=== PATIENT | female | born 1960 | race Caucasian/White ===

== ENCOUNTER 2016-11-19 15:10 | Inpatient (IN) | payer SELFPAY ==
[2016-11-19] MEDS ORDERED: DUONEB 0.5-3 MG/3 ml Neb IH ONE ×2 (15:56→16:23)
--- NOTE | 2016-11-19 16:04 | ERPHSYRPT ---
- History of Present Illness Time Seen by Provider: 11/19/16 15:51 Source: patient Exam Limitations: no limitations Patient Subjective Stated Complaint: prod cough and not feeling well for two days Triage Nursing Assessment: ambulated to room per self. skin w/d, color pale resp slightly labored. breath sounds diminished throughout. sats 86% room air. placed on oxygen 3L Physician History: This is a 56-year-old white female with history of high blood pressure, COPD, diabetes, arthritis, She arrives with complaint of a cough productive of yellow sputum shortness of breath, pain in her right side of her chest with breathing symptoms for 3 days. She denies any fevers no nausea no vomiting no diarrhea she has no abdominal pain. Past medical history includes high blood pressure, COPD, diabetes, arthritis, pancreatitis, anxiety, bipolar disorder. Past surgical history includes cholecystectomy, hysterectomy. Social history is positive for tobacco use patient denies alcohol or illicit drug use. Timing/Duration: day(s) (3 days) Activities at Onset: none Severity of Dyspnea-Max: moderate Severity of Dyspnea-Current: mild Possible Cause: occasional episodes Modifying Factors: Improves With: albuterol inhaler (patient has a Pro Air inhaler at home) Associated Symptoms: constant, cough, chest pain/discomfort (pain right chest with coughing), wheezing, painful breathing, productive cough, No edema, No fever, No insomnia, No loss of appetite, No lightheadedness, No weakness, No ankle swelling, No chills, No hemoptysis, No calf pain, No dizziness, No heaviness, No heart racing, No lightheadedness, No leg swelling, No muscle spasms feet, No muscle spasms hands, No sweating, No tightness, No tingling face , No tingling hands Allergies/Adverse Reactions: No Known Drug Allergies Allergy (Verified 11/19/16 15:27) Home Medications: Albuterol Sulfate [Proair Hfa] 8.5 gm IH Q4H 03/27/14 [History] Clonazepam 1 mg PO BID 03/27/14 [History] Lisinopril 10 mg [Zestril 10 MG] 10 mg PO HS 03/27/14 [History] Tramadol HCl 50 mg [Ultram 50 mg] 50 mg PO BID 03/27/14 [History] Carvedilol 25 mg PO BID 04/10/14 [History] Aspirin 81 mg PO HS 07/30/15 [History] Diclofenac Sodium 50 mg [Voltaren 50 mg] 50 mg PO BID 11/19/16 [History] Insulin Glargine,Hum.rec.anlog [Lantus] 50 unit SQ HS 11/19/16 [History] Hx Tetanus, Diphtheria Vaccination/Date Given: Yes Hx Influenza Vaccination/Date Given: No Hx Pneumococcal Vaccination/Date Given: No - Review of Systems Constitutional: No Fever, No Chills Eyes: No Symptoms Ears, Nose, & Throat: No Symptoms, No Ear Pain, No Ear Discharge, No Hearing Changes, No Tinnitus, No Nose Pain, No Nose Congestion, No Nose Discharge, No Sinus Drainage, No Epistaxis, No Mouth Pain, No Mouth Swelling, No Loose Teeth, No Throat Pain, No Throat Swelling, No Hoarse, No Painful Swallowing, No Snoring , No Stridor Respiratory: Cough, Dyspnea, Wheezing, No Cyanosis, No Dyspnea on Exertion (BOSWELL) , No Stridor, No Other Cardiac: Chest Pain (pain in right chest with coughing), No Edema, No Palpitations, No Syncope, No Orthopnea Abdominal/Gastrointestinal: No Abdominal Pain, No Nausea, No Vomiting, No Diarrhea Genitourinary Symptoms: No Dysuria Musculoskeletal: No Back Pain, No Neck Pain Skin: No Rash Neurological: No Dizziness, No Focal Weakness, No Sensory Changes Psychological: No Symptoms Endocrine: No Symptoms All Other Systems: Reviewed and Negative - Past Medical History Pertinent Past Medical History: Yes Neurological History: No Pertinent History ENT History: Cataracts Cardiac History: Hypertension Respiratory History: COPD Endocrine Medical History: Diabetes Type II Musculoskeletal History: Osteoporosis GI Medical History: Other History: No Pertinent History Psycho-Social History: Anxiety, Bipolar Female Reproductive Disorders: No Pertinent History Other Medical History: spastic colon - Past Surgical History Past Surgical History: Yes Neuro Surgical History: No Pertinent History Cardiac: No Pertinent History Respiratory: No Pertinent History Gastrointestinal: Cholecystectomy Genitourinary: No Pertinent History Musculoskeletal: No Pertinent History Female Surgical History: Hysterectomy Other Surgical History: gallbladder removed - Social History Smoking Status: Current every day smoker How long have you smoked: 30 Exposure to second hand smoke: Yes Drug Use: none Patient Lives Alone: No - Nursing Vital Signs Nursing Vital Signs: Initial Vital Signs Temperature 99.1 F Temperature Source Oral Pulse Rate 94 Respiratory Rate 18 Blood Pressure [] 119/60 Pain Intensity 2 - Physical Exam General Appearance: mild distress, alert Eye Exam: PERRL/EOMI, eyes nml inspection, other (fundi are unremarkable) Ears, Nose, Throat Exam: hearing grossly normal, normal ENT inspection, normal pharynx, No abnormal TM (R), No abnormal TM (L), No sinus pain/drainage, No hearing decreased, No nasal congestion, No pharyngeal erythema, No tonsillar exudate, No tonsillar swelling Neck Exam: normal inspection, non-tender, supple Respiratory Exam: diminished breath sounds, rhonchi (bilateral rhonchi), wheezing, other (pain in right chest with deep breathing) Cardiovascular/Chest Exam: normal heart sounds, regular rate/rhythm Abdominal/Gastrointestinal Exam: soft, No tenderness, No distention, No mass Extremity Exam: non-tender, normal range of motion, normal inspection, no calf tenderness, no pedal edema Peripheral Pulses Exam: dorsalis-pedis (R): 2+, dorsalis-pedis (L): 2+ Neurologic Exam: alert, oriented x 3, cooperative, shaft repairer II-XII nml as tested, sensation nml, No motor deficits Skin Exam: normal color, warm, No dry SpO2 Interpretation: normal (87%) SpO2: 87 Oxygen Delivery: Room Air - Course Nursing assessment & vital signs reviewed: Yes EKG Interpreted by Me: RATE (90bpm), Sinus Rhythm, NORMAL AXIS, Other (EKG, sinus rhythm, 90 bpm, normal axis, no acute ST or T wave changes noted) - Radiology Exams Chest X-ray Interpretation: Interpreted by me (no acute disease process noted) Ordered Tests: Active Orders 24 hr Category Date Time Status EKG-ER Only STAT Care 11/19/16 15:56 Active IV Insertion STAT Care 11/19/16 15:56 Active Oxygen-ED Only NASAL CANNULA 2 lpm Care 11/19/16 15:56 Active CHEST 1 VIEW (PORTABLE) Stat Exams 11/19/16 15:57 Taken BLOOD CULTURE Stat Lab 11/19/16 17:32 Ordered CBC W DIFF Stat Lab 11/19/16 16:15 Completed CMP Stat Lab 11/19/16 16:15 Completed CULTURE,SPUTUM Stat Lab 11/19/16 17:32 Uncollected D-DIMER QUANTITATION Stat Lab 11/19/16 16:15 Completed TROPONIN Stat Lab 11/19/16 16:15 Completed VENOUS BLOOD GAS Urgent Lab 11/19/16 15:56 Completed Respiratory Nebulizer STAT RT 11/19/16 15:59 Completed Medication Summary Generic Name Dose Route Start Last Admin Trade Name Lizz PRN Reason Stop Dose Admin Ceftriaxone Sodium/Dextrose 50 mls @ 100 mls/hr 11/19/16 17:32 Rocephin 1 Gm-D5w 50 Ml Bag IV 11/19/16 18:01 STAT ONE Discontinued Medications Generic Name Dose Route Start Last Admin Trade Name Lizz PRN Reason Stop Dose Admin Albuterol/Ipratropium 3 ml 11/19/16 15:56 11/19/16 16:00 Duoneb 0.5-3 Mg/3 Ml Neb IH 11/19/16 15:57 3 ml STAT ONE Administration Albuterol/Ipratropium Confirm 11/19/16 16:23 Duoneb 0.5-3 Mg/3 Ml Neb Administered 11/19/16 16:24 Dose 3 ml IH .STK-MED ONE Methylprednisolone Sodium Succinate 125 mg 11/19/16 17:22 Solu-Medrol 125 Mg IV 11/19/16 17:23 STAT ONE Lab/Rad Data: Laboratory Result Diagrams 11/19/16 16:15 11/19/16 16:15 Laboratory Results 11/19/16 11/19/16 11/19/16 Range/Units 16:15 16:15 16:15 WBC 15.5 H (4.0-10.5) K/mm3 RBC 5.09 (4.1-5.4) M/mm3 Hgb 13.8 (12.0-16.0) gm/dl Hct 42.3 (35-47) % MCV 83.1 (78-100) fl MCH 27.1 (26-32) pg MCHC 32.6 (32-36) g/dl RDW 14.2 H (11.5-14.0) % Plt Count 222 (150-450) K/mm3 MPV 10.3 H (6-9.5) fl Gran % 75.7 H (36.0-66.0) % Lymphocytes % 15.4 L (24.0-44.0) % Monocytes % 7.1 (0.0-12.0) % Eosinophils % 1.6 (0.00-5.0) % Basophils % 0.2 (0.0-0.4) % Basophils # 0.03 (0-0.4) D-Dimer 0.336 (0.00-0.49) mg/L VBG pH (7.32-7.42) VBG pCO2 at Pat Temp (42-55) mm/Hg VBG pO2 at Pat Temp (25-40) mm/Hg VBG HCO3 (22-28) meq/L VBG O2 Sat (Megan) (95-100) VBG Base Excess (-2.0-2.0) VBG Hemoglobin VBG Carboxyhemoglobin (0.0-6.9) % T HGB POC Potassium (3.5-5.1) Sodium 142 (136-145) mEq/L Potassium 4.2 (3.5-5.1) mEq/L Chloride 103 (98-107) mEq/L Carbon Dioxide 27.5 (21-32) mEq/L Anion Gap 15.5 H (5-15) MEQ/L BUN 8 L (9-20) mg/dL Creatinine 0.71 (0.55-1.30) mg/dl Estimated GFR > 60 ML/MIN Glucose 164 H (70-110) MG/DL Calcium 9.5 (8.5-10.1) mg/dL Total Bilirubin 0.4 (0.2-1.0) mg/dL AST 20 (15-37) U/L ALT 26 (12-78) U/L Alkaline Phosphatase 129 H (46-116) U/L Troponin I < 0.017 (0.000-0.056) ng/ml Serum Total Protein 8.0 (6.4-8.2) gm/dL Albumin 3.7 (3.4-5.0) g/dL 11/19/16 Range/Units 15:56 WBC (4.0-10.5) K/mm3 RBC (4.1-5.4) M/mm3 Hgb (12.0-16.0) gm/dl Hct (35-47) % MCV (78-100) fl MCH (26-32) pg MCHC (32-36) g/dl RDW (11.5-14.0) % Plt Count (150-450) K/mm3 MPV (6-9.5) fl Gran % (36.0-66.0) % Lymphocytes % (24.0-44.0) % Monocytes % (0.0-12.0) % Eosinophils % (0.00-5.0) % Basophils % (0.0-0.4) % Basophils # (0-0.4) D-Dimer (0.00-0.49) mg/L VBG pH 7.42 (7.32-7.42) VBG pCO2 at Pat Temp 46 (42-55) mm/Hg VBG pO2 at Pat Temp 34 (25-40) mm/Hg VBG HCO3 29.8 H* (22-28) meq/L VBG O2 Sat (Megan) 72.9 L (95-100) VBG Base Excess 4.4 H (-2.0-2.0) VBG Hemoglobin 14.3 VBG Carboxyhemoglobin 7.0 H* (0.0-6.9) % T HGB POC Potassium 4.3 (3.5-5.1) Sodium (136-145) mEq/L Potassium (3.5-5.1) mEq/L Chloride (98-107) mEq/L Carbon Dioxide (21-32) mEq/L Anion Gap (5-15) MEQ/L BUN (9-20) mg/dL Creatinine (0.55-1.30) mg/dl Estimated GFR ML/MIN Glucose (70-110) MG/DL Calcium (8.5-10.1) mg/dL Total Bilirubin (0.2-1.0) mg/dL AST (15-37) U/L ALT (12-78) U/L Alkaline Phosphatase (46-116) U/L Troponin I (0.000-0.056) ng/ml Serum Total Protein (6.4-8.2) gm/dL Albumin (3.4-5.0) g/dL - Progress Progress: improved Air Movement: fair Progress Note: 11/19/16 17:23 Patient feeling better after DuoNeb treatment d-dimer is within normal limits troponin within normal limits white count mildly elevated at 15.5 hemoglobin 13.8 hematocrit 42.3 Chest x-ray no acute disease processes noted Unfortunately patient is 90% on 3 L of oxygen We will consider admission for COPD with exacerbation 11/19/16 17:35 Case is discussed with Dr. Sim will go ahead and obtained influenza panel. Solu-Medrol has been ordered Will go ahead and obtain blood cultures sputum cultures and give patient Rocephin. Will plan to place on observation telemetry. Diagnoses 1 COPD with exacerbation 2. Hypoxia 3. Shortness of breath. - Departure Time of Disposition: 17:36 Departure Disposition: Observation (Dr Sim for Dr Emery) Clinical Impression: COPD with exacerbation, Hypoxia, Shortness of breath Condition: Fair Critical Care Time: No Instructions: Chronic Obstructive Pulmonary Disease
[2016-11-19 16:19] LABS: VBG BASE EXCESS 4.4 (-2.0-2.0); VBG HCO3- 29.8 meq/L (22-28); VBG HEMOGLOBIN 14.3; VBG O2 SATURATION 72.9 (95-100); VBG POTASSIUM 4.3 (3.5-5.1); VBG pH 7.42 (7.32-7.42)
[2016-11-19 16:27] LABS: BASOPHIL % 0.2 % (0.0-0.4); Eosinophil % 1.6 % (0.00-5.0); Granulocytes % 75.7 % (36.0-66.0); Lymphocytes % 15.4 % (24.0-44.0); Mean Cell Volume 83.1 fl (78-100); Mean Corpuscular Hemoglobin 27.1 pg (26-32); Mean Platelet Volume 10.3 fl (6-9.5); Monocytes % 7.1 % (0.0-12.0); Platelet Count 222 K/mm3 (150-450); Red Blood Count 5.09 M/mm3 (4.1-5.4); Red Cell Distribution Width 14.2 % (11.5-14.0); White Blood Count 15.5 K/mm3 (4.0-10.5)
[2016-11-19 17:14] LABS: ALBUMIN 3.7 g/dL (3.4-5.0); ALKALINE PHOSPHATASE 129 U/L (46-116); ANION GAP 15.5 MEQ/L (5-15); BILIRUBIN,TOTAL 0.4 mg/dL (0.2-1.0); BLOOD UREA NITROGEN 8 mg/dL (9-20); CHLORIDE 103 mEq/L (98-107); Carbon Dioxide 27.5 mEq/L (21-32); Glucose 164 MG/DL (70-110); Potassium 4.2 mEq/L (3.5-5.1); SGOT/AST 20 U/L (15-37); SGPT/ALT 26 U/L (12-78); SODIUM 142 mEq/L (136-145)
[2016-11-19 17:19] LABS: TROPONIN < 0.017 ng/ml (0.000-0.056)
[2016-11-19] MEDS ORDERED: solu-MEDROL 125 MG IV ONE (17:22)
[2016-11-19] MEDS ORDERED: ROCEPHIN 1 Gm-D5w 50 ml Bag** 50 ML IV ONE ×2 (17:32→18:14)
[2016-11-19] MEDS ORDERED: solu-MEDROL 125 MG ONE (18:14)
[2016-11-19] MEDS ORDERED: DUONEB 0.5-3 MG/3 ml Neb IH PRN (18:32)
[2016-11-19] MEDS: solu-MEDROL 125 MG IV SCH (18:46)
--- NOTE | 2016-11-19 22:20 | XRAY ---
Indication: Cough. Short of breath. Comparison: March 27, 2014. Portable chest remains clear. Heart is not enlarged. Bony thorax intact. No new/acute findings. Impression: Stable nonacute chest.
[2016-11-19] MEDS: ECOTRIN 81 MG PO SCH (22:32)
[2016-11-19] MEDS: Zestril 10 MG PO SCH (22:32)
[2016-11-19] MEDS: Klonopin 0.5 MG PO SCH (22:32)
[2016-11-19] MEDS: ULTRAM 50 MG PO PRN (22:32)
[2016-11-19] MEDS: COREG 12.5 MG PO SCH (22:32)
[2016-11-19] MEDS: Lantus Insulin SQ SCH (22:33)
[2016-11-19] MEDS: VOLTAREN 50 MG PO SCH (22:38)
[2016-11-20] MEDS: solu-MEDROL 125 MG IV SCH ×5 (00:22→23:42)
[2016-11-20 06:02] LABS: BASOPHIL % 0.1 % (0.0-0.4); Eosinophil % 0.1 % (0.00-5.0); Lymphocytes % 13.9 % (24.0-44.0); Mean Cell Volume 83.7 fl (78-100); Mean Corpuscular Hemoglobin 27.4 pg (26-32); Mean Platelet Volume 10.4 fl (6-9.5); Monocytes % 0.9 % (0.0-12.0); Platelet Count 235 K/mm3 (150-450); Red Blood Count 5.14 M/mm3 (4.1-5.4); Red Cell Distribution Width 14.2 % (11.5-14.0); White Blood Count 9.8 K/mm3 (4.0-10.5)
[2016-11-20 06:43] LABS: ALBUMIN 3.4 g/dL (3.4-5.0); ALKALINE PHOSPHATASE 122 U/L (46-116); ANION GAP 15.8 MEQ/L (5-15); BILIRUBIN,TOTAL 0.2 mg/dL (0.2-1.0); BLOOD UREA NITROGEN 16 mg/dL (9-20); CHLORIDE 103 mEq/L (98-107); Carbon Dioxide 26.7 mEq/L (21-32); Glucose 281 MG/DL (70-110); Potassium 4.4 mEq/L (3.5-5.1); SGOT/AST 16 U/L (15-37); SGPT/ALT 29 U/L (12-78); SODIUM 141 mEq/L (136-145); Total Protein 7.8 gm/dL (6.4-8.2)
[2016-11-20] MEDS: Zithromax 500 MG/ 250 ML NaCl Premix 250 ML IV SCH (08:32)
[2016-11-20] MEDS: NovoLOG Insulin SQ PRN ×4 (08:33→22:15)
[2016-11-20] MEDS: ROCEPHIN 1 Gm-D5w 50 ml Bag** 50 ML IV SCH (10:40)
[2016-11-20] MEDS: Klonopin 0.5 MG PO SCH ×2 (10:45→18:39)
[2016-11-20] MEDS: COREG 12.5 MG PO SCH ×2 (10:45→18:41)
[2016-11-20] MEDS: VOLTAREN 50 MG PO SCH ×2 (10:46→18:39)
--- NOTE | 2016-11-20 16:15 | PCM.HP ---
History of Present Illness - Chief Complaint Chief Complaint: exacerbation of copd History of Present Illness: is a 56 year old female who has been sick with respiratory illness off and on since Sep 2016. She has had several office visits and apparently had IV fluids at one point with temporary iimprovement. Took zpack with temporary improvement. One month ago she felt very bad for 2 weeks, then felt pretty good x 2 wks, then she started feeling badly 2d ago. She went to work but had a cough and R sided chest pain and was sent home by her employer. Yesterday came to ER and was found to have COPD exacerbation and was admitted on IV rocephin, IV zithromax, and solumedrol 80mg IV q6h. Today she feels much better. Breathing is better. Last neb was last night. - Review of Systems Constitutional: No Fever Respiratory: Cough, Wheezing Cardiac: Chest Pain Psychological: No Depression, No Suicidal Ideations All Other Systems: Reviewed and Negative Medications & Allergies Home Medications: Home Medication List Albuterol Sulfate [Proair Hfa] 8.5 gm IH Q4H 03/27/14 [History Confirmed ] Clonazepam 1 mg PO BID 03/27/14 [History Confirmed 11/19/16] Lisinopril 10 mg [Zestril 10 MG] 10 mg PO HS 03/27/14 [History Confirmed 11/19/16] Tramadol HCl 50 mg [Ultram 50 mg] 50 mg PO BID 03/27/14 [History Confirmed 11/19/16] Carvedilol 25 mg PO BID 04/10/14 [History Confirmed 11/19/16] Aspirin 81 mg PO HS 07/30/15 [History Confirmed 11/19/16] Diclofenac Sodium 50 mg [Voltaren 50 mg] 50 mg PO BID 11/19/16 [History Confirmed 11/19/16] Insulin Glargine,Hum.rec.anlog [Lantus] 50 unit SQ HS 11/19/16 [History Confirmed 11/19/16] Allergies/Adverse Reactions: Allergies Allergy/AdvReac Type Severity Reaction Status Date / Time No Known Drug Allergies Allergy Verified 11/19/16 15:27 - Past Medical History Past Medical History: Yes Neurological History: No Pertinent History, Peripheral Neuropathy ENT History: Cataracts Cardiac History: Hypertension Respiratory History: COPD Endocrine Medical History: Diabetes Type II Musculoskelatal History: Osteoporosis, Other GI Medical History: Other History: No Pertinent History Pyscho-Social History: Anxiety, Bipolar Reproductive Disorders: No Pertinent History Comment: spastic colon, carpal tunnel bilateral arms - Female History Are you now?: No - Past Surgical History Past Surgical History: Yes Neuro Surgical History: No Pertinent History Cardiac History: No Pertinent History Respiratory Surgery: No Pertinent History GI Surgical History: Cholecystectomy Genitourinary Surgical Hx: No Pertinent History Musculskeletal Surgical Hx: No Pertinent History Female Surgical History: Hysterectomy Other Surgical History: gallbladder removed - Social History Smoking Status: Former smoker How long have you smoked: 30 Exposure to second hand smoke: Yes Alcohol: None Drug Use: none - Physical Exam Vital Signs: Vital Signs - 24 hr Temp Pulse Resp BP Pulse Ox 11/20/16 12:00 20 11/20/16 10:58 97.7 F 77 20 112/52 98 11/20/16 08:00 20 11/20/16 07:24 97.9 F 72 20 99/54 96 11/20/16 04:31 20 11/20/16 04:00 98.6 F 73 20 108/61 91 L 11/20/16 00:31 18 11/20/16 00:00 98.8 F 91 H 18 112/53 96 11/19/16 20:55 86 18 91 L 11/19/16 20:01 99.2 F 87 18 92 L 11/19/16 20:00 99.2 F 87 20 127/58 92 L 11/19/16 18:21 98 H 124/72 90 L 11/19/16 17:37 87 L 11/19/16 17:21 94 H 18 97 11/19/16 17:03 96 H 18 119/60 91 L Oxygen-Last 24 hours O2 Percentage 3 Liters = 32% O2 Percentage 4 Liters = 36% O2 Percentage 3 Liters = 32% O2 Percentage 3 Liters = 32% O2 Percentage 3 Liters = 32% O2 Percentage 3 Liters = 32% O2 Percentage 2 Liters = 28% O2 Percentage 3 Liters = 32% General Appearance: no apparent distress Neurologic Exam: alert, oriented x 3, cooperative Eye Exam: eyes nml inspection Neck Exam: normal inspection, non-tender, No lymphadenopathy Respiratory Exam: diminished breath sounds, wheezing (faint, scattered), other ( good air exchange), No crackles/rales, No rhonchi Cardiovascular Exam: regular rate/rhythm, normal heart sounds, No murmur Gastrointestinal/Abdomen Exam: soft, normal bowel sounds, No tenderness, No distention Back Exam: normal inspection, No CVA tenderness Extremity Exam: No pedal edema, No swelling Results - Labs Lab/Micro Results: Accuchecks Date 11/20/16 Date 11/20/16 Date 11/19/16 Time 11:30 Time 07:30 Time 22:00 Accucheck Value: 345 Accucheck Value: 304 Accucheck Value: 248 Lab Results-Last 24 Hours 11/20/16 11/20/16 Range/Units 05:20 05:20 WBC 9.8 (4.0-10.5) K/mm3 RBC 5.14 (4.1-5.4) M/mm3 Hgb 14.1 (12.0-16.0) gm/dl Hct 43.0 (35-47) % MCV 83.7 (78-100) fl MCH 27.4 (26-32) pg MCHC 32.8 (32-36) g/dl RDW 14.2 H (11.5-14.0) % Plt Count 235 (150-450) K/mm3 MPV 10.4 H (6-9.5) fl Gran % 85.0 H (36.0-66.0) % Lymphocytes % 13.9 L (24.0-44.0) % Monocytes % 0.9 (0.0-12.0) % Eosinophils % 0.1 (0.00-5.0) % Basophils % 0.1 (0.0-0.4) % Basophils # 0.01 (0-0.4) Sodium 141 (136-145) mEq/L Potassium 4.4 (3.5-5.1) mEq/L Chloride 103 (98-107) mEq/L Carbon Dioxide 26.7 (21-32) mEq/L Anion Gap 15.8 H (5-15) MEQ/L BUN 16 (9-20) mg/dL Creatinine 0.84 (0.55-1.30) mg/dl Estimated GFR > 60 ML/MIN Glucose 281 H (70-110) MG/DL Calcium 9.6 (8.5-10.1) mg/dL Total Bilirubin 0.2 (0.2-1.0) mg/dL AST 16 (15-37) U/L ALT 29 (12-78) U/L Alkaline Phosphatase 122 H (46-116) U/L Serum Total Protein 7.8 (6.4-8.2) gm/dL Albumin 3.4 (3.4-5.0) g/dL Accuchecks Date 11/20/16 Date 11/20/16 Date 11/19/16 Time 11:30 Time 07:30 Time 22:00 Accucheck Value: 345 Accucheck Value: 304 Accucheck Value: 248 - Other Procedures and Tests Respiratory Therapy 11/20/16 00:21 Respiratory Nebulizer PRN Assessment/Plan (1) COPD with exacerbation Current Visit: Yes Status: Acute Assessment & Plan: On IV rocephin, IV zithromax, and IV solumedrol. Will go ahead and decrease the IV solumedrol. Advised pt she has been sick for some time so will probably need several days of IV medicines to recover. Code(s): J44.1 - CHRONIC OBSTRUCTIVE PULMONARY DISEASE W (ACUTE) EXACERBATION (2) Hypoxia Current Visit: Yes Status: Acute Assessment & Plan: No O2 at home. Comfortable on several L NC here. Code(s): R09.02 - HYPOXEMIA (3) Tobacco abuse Current Visit: Yes Status: Chronic Assessment & Plan: Advised pt the most effective tx for COPD is smoking cessation. She voiced understanding. Code(s): Z72.0 - TOBACCO USE (4) Diabetes Current Visit: Yes Status: Chronic Qualifiers: Diabetes mellitus type: type 1 Diabetes mellitus complication status: without complication Qualified Code(s): E10.9 - Type 1 diabetes mellitus without complications Assessment & Plan: On Lantus 50 units daily, will add SS prn. Code(s): E11.9 - TYPE 2 DIABETES MELLITUS WITHOUT COMPLICATIONS
[2016-11-20] MEDS ORDERED: solu-MEDROL 125 MG ONE ×2 (16:28→22:14)
[2016-11-20] MEDS ORDERED: NovoLIN R ONE (16:30)
[2016-11-20] MEDS ORDERED: NovoLIN R SQ SCH (16:30)
[2016-11-20] MEDS: Tessalon Perles 100 MG PO PRN (17:00)
[2016-11-20] MEDS: ENOXAPARIN SODIUM SQ SCH (17:01)
[2016-11-20] MEDS: ECOTRIN 81 MG PO SCH (18:40)
[2016-11-20] MEDS: NEURONTIN 300 MG PO SCH (18:40)
[2016-11-20] MEDS: Zestril 10 MG PO SCH (18:40)
[2016-11-20] MEDS: ULTRAM 50 MG PO PRN (18:41)
[2016-11-20] MEDS ORDERED: solu-MEDROL 125 MG IV SCH (20:00)
[2016-11-20] MEDS ORDERED: Vancomycin 1GM/ Ns 250ML*** 250 ML IV ONE (20:17)
[2016-11-20] MEDS: VANCOCIN 1 GM VIAL*** 1 GM in Sodium Chloride 0.9% 250 ML 250 ML IV SCH (20:22)
[2016-11-20] MEDS: Lantus Insulin SQ SCH (22:16)
[2016-11-20] MEDS: solu-MEDROL 40 MG IV SCH (22:21)
[2016-11-21] MEDS ORDERED: solu-MEDROL 125 MG ONE (04:42)
[2016-11-21] MEDS: solu-MEDROL 40 MG IV SCH ×3 (05:01→20:25)
[2016-11-21 07:21] LABS: Collection Type CLEAN CATCH
[2016-11-21 07:22] LABS: COMPLETE URINE MICROSCOPIC? YES; Ph 5.5 (5-6)
[2016-11-21] MEDS: NovoLOG Insulin SQ PRN ×4 (07:57→22:31)
[2016-11-21] MEDS: VANCOCIN 1 GM VIAL*** 1 GM in Sodium Chloride 0.9% 250 ML 250 ML IV SCH ×2 (07:58→20:25)
[2016-11-21 09:28] LABS: Bacteria FEW /HPF (NEGATIVE); Epithelial Cells FEW /HPF (FEW)
[2016-11-21] MEDS: ENOXAPARIN SODIUM SQ SCH (09:31)
[2016-11-21] MEDS: COREG 12.5 MG PO SCH ×2 (09:31→18:14)
[2016-11-21] MEDS: Klonopin 0.5 MG PO SCH ×2 (09:31→18:13)
[2016-11-21] MEDS: ROCEPHIN 1 Gm-D5w 50 ml Bag** 50 ML IV SCH (09:32)
[2016-11-21] MEDS: VOLTAREN 50 MG PO SCH ×2 (09:32→18:15)
[2016-11-21] MEDS: Zithromax 500 MG/ 250 ML NaCl Premix 250 ML IV SCH (10:55)
--- NOTE | 2016-11-21 16:45 | PCM.NOTE ---
Date and Time: 11/21/16 1640 Subjective Assessment: She is feeling "great!" Syed po well. Still coughing quite a bit. - Review of Systems Constitutional: No Fever Respiratory: Cough Objective Exam General Appearance: no apparent distress Neurologic Exam: alert, oriented x 3, cooperative Skin Exam: normal color, warm, dry Respiratory Exam: diminished breath sounds, wheezing (exp, more so in bases), No crackles/rales, No rhonchi Cardiovascular Exam: regular rate/rhythm, normal heart sounds, No murmur Extremity Exam: No pedal edema, No swelling OBJECTIVE DATA Vital Signs: Vital Signs - 24 hr Temp Pulse Resp BP Pulse Ox 11/21/16 16:16 97.9 F 68 20 109/68 96 11/21/16 12:17 97.8 F 63 20 105/78 95 11/21/16 12:00 20 11/21/16 08:39 75 20 95 11/21/16 08:00 20 11/21/16 07:15 97.8 F 80 20 118/58 93 L 11/21/16 04:00 97.9 F 66 20 101/54 96 11/21/16 00:00 98.7 F 53 L 20 95/50 94 L 11/20/16 21:30 70 18 95 11/20/16 20:00 98.7 F 53 L 20 123/55 96 Oxygen-Last 24 hours O2 Percentage 5 Liters = 40% O2 Percentage 4 Liters = 36% O2 Percentage 5 Liters = 40% O2 Percentage 5 Liters = 40% O2 Percentage 5 Liters = 40% O2 Percentage 3 Liters = 32% Pain Assessment - Last Documented Pain Scale Used 0-10 Pain Scale Intake and Output: Intake & Output 11/19/16 11/20/16 11/21/16 11/22/16 11:59 11:59 11:59 11:59 Intake Total 1090 240 Output Total 400 100 Balance 690 140 Weight 76.839 kg Lab Results: Accuchecks Date 11/21/16 Date 11/21/16 Date 11/20/16 Time 11:30 Time 07:57 Time 22:00 Accucheck Value: 257 Accucheck Value: 353 Accucheck Value: 351 Lab Results-Last 24 Hours 11/21/16 Range/Units 07:08 Ur Collection Type CLEAN CATCH Urine Color YELLOW (YELLOW) Urine Appearance CLEAR (CLEAR) Urine pH 5.5 (5-6) Ur Specific [place] 1.025 (1.005-1.025) Urine Protein NEGATIVE (Negative) Urine Glucose (UA) 500 (NEGATIVE) mg/dL Urine Ketones NEGATIVE (NEGATIVE) Urine Nitrite NEGATIVE (NEGATIVE) Urine Bilirubin NEGATIVE (NEGATIVE) Urine Urobilinogen 0.2 (0-1) mg/dL Urine WBC (Auto) NEGATIVE (NEGATIVE) Urine RBC (Auto) TRACE-INTACT (0-5) Dc/ul Urine Microscopic RBC 2-5 (0-2) /HPF Ur Epithelial Cells FEW (FEW) /HPF Urine Bacteria FEW (NEGATIVE) /HPF Specimen Received [id number] Assessment/Plan (1) COPD with exacerbation Current Visit: Yes Status: Acute Assessment & Plan: Better, we did discuss again the long course of her illness over the past several months. I do think patient has improved but would benefit from another 1-2 days of IV antibiotics and steroids. Code(s): J44.1 - CHRONIC OBSTRUCTIVE PULMONARY DISEASE W (ACUTE) EXACERBATION (2) Hypoxia Current Visit: Yes Status: Acute Assessment & Plan: on O2 NC - pt is not on O2 at home prior to admission. Code(s): R09.02 - HYPOXEMIA (3) Tobacco abuse Current Visit: Yes Status: Chronic Code(s): Z72.0 - TOBACCO USE (4) Diabetes Current Visit: Yes Status: Chronic Qualifiers: Diabetes mellitus type: type 1 Diabetes mellitus complication status: without complication Qualified Code(s): E10.9 - Type 1 diabetes mellitus without complications Assessment & Plan: BS in 200s-300s with IV steroids - increase lantus from 50 units to 55 units at hs while here. Code(s): E11.9 - TYPE 2 DIABETES MELLITUS WITHOUT COMPLICATIONS
[2016-11-21] MEDS: Zestril 10 MG PO SCH (18:13)
[2016-11-21] MEDS: ECOTRIN 81 MG PO SCH (18:13)
[2016-11-21] MEDS: NEURONTIN 300 MG PO SCH (18:14)
[2016-11-21] MEDS: ULTRAM 50 MG PO PRN (20:36)
[2016-11-21] MEDS: Tessalon Perles 100 MG PO PRN (22:29)
[2016-11-21] MEDS: Lantus Insulin SQ SCH (22:31)
[2016-11-22] MEDS: solu-MEDROL 40 MG IV SCH (04:11)
[2016-11-22] MEDS: COREG 12.5 MG PO SCH ×2 (09:03→19:34)
[2016-11-22] MEDS: Tessalon Perles 100 MG PO PRN ×2 (09:03→19:33)
[2016-11-22] MEDS: ROCEPHIN 1 Gm-D5w 50 ml Bag** 50 ML IV SCH (09:03)
[2016-11-22] MEDS: ENOXAPARIN SODIUM SQ SCH (09:03)
[2016-11-22] MEDS: Klonopin 0.5 MG PO SCH ×2 (09:03→19:34)
[2016-11-22] MEDS: DELTASONE 20 MG PO SCH (09:03)
[2016-11-22] MEDS: VOLTAREN 50 MG PO SCH ×2 (09:04→19:34)
[2016-11-22] MEDS ORDERED: TROUGH DRUG LEVELS IJ ONE (09:30)
[2016-11-22] MEDS: VANCOCIN 1 GM VIAL*** 1 GM in Sodium Chloride 0.9% 250 ML 250 ML IV SCH (09:39)
[2016-11-22] MEDS: Zithromax 500 MG/ 250 ML NaCl Premix 250 ML IV SCH (10:58)
[2016-11-22] MEDS: NovoLOG Insulin SQ PRN ×3 (11:50→21:47)
[2016-11-22] MEDS: ULTRAM 50 MG PO PRN ×2 (15:40→19:35)
[2016-11-22] MEDS: Zestril 10 MG PO SCH (19:34)
[2016-11-22] MEDS: NEURONTIN 300 MG PO SCH (19:34)
[2016-11-22] MEDS: ECOTRIN 81 MG PO SCH (19:35)
--- NOTE | 2016-11-22 19:59 | PCM.NOTE ---
Date and Time: 11/22/161954 Subjective Assessment: feeling better this am but still on 5 L nc O2. Night nurse reports her O2 was off and checked her sat at 03:00 and was 83% on room air while asleep. THe patient reports she was up in the wray walking without O2 yesterday but currently has the 5L NC on. She feels better no vomiting tolerating po now. Objective Exam General Appearance: no apparent distress Neurologic Exam: alert, oriented x 3, cooperative Skin Exam: warm, dry Ears, Nose, Throat Exam: moist mucous membranes, dry mucous membranes Neck Exam: non-tender, supple Respiratory Exam: rhonchi, wheezing, No respiratory distress Cardiovascular Exam: regular rate/rhythm, normal heart sounds Gastrointestinal/Abdomen Exam: soft, normal bowel sounds, No tenderness, No distention Extremity Exam: normal inspection, No miki's sign, No pedal edema OBJECTIVE DATA Vital Signs: Vital Signs - 24 hr Temp Pulse Resp BP Pulse Ox 11/22/16 19:31 97.6 F 59 L 18 179/77 89 L 11/22/16 16:00 98.2 F 74 18 174/74 92 L 11/22/16 12:00 98.1 F 61 18 154/67 92 L 11/22/16 07:49 69 18 93 L 11/22/16 07:42 97.6 F 52 L 18 134/64 95 11/22/16 04:00 98.4 F 51 L 18 132/84 96 11/22/16 00:00 98.0 F 61 22 139/63 92 L 11/21/16 22:00 64 22 92 L 11/21/16 20:00 97.6 F 58 L 20 122/59 96 Oxygen-Last 24 hours O2 Percentage 2 Liters = 28% O2 Percentage 2 Liters = 28% O2 Percentage 2 Liters = 28% O2 Percentage 5 Liters = 40% O2 Percentage 5 Liters = 40% O2 Percentage 5 Liters = 40% O2 Percentage 5 Liters = 40% Pain Assessment - Last Documented Pain Intensity 0 Pain Scale Used 0-10 Pain Scale Intake and Output: Intake & Output 11/20/16 11/21/16 11/22/16 11/23/16 11:59 11:59 11:59 11:59 Intake Total 1090 1780 1060 Output Total 400 1900 Balance 690 -120 1060 Weight 76.839 kg 75.024 kg 75.024 kg Lab Results: Accuchecks Date 11/22/16 Date 11/22/16 Date 11/21/16 Time 11:30 Time 07:30 Time 22:00 Accucheck Value: 346 Accucheck Value: 277 Accucheck Value: 187 Accucheck Value: 428 Lab Results-Last 24 Hours 11/22/16 Range/Units 07:59 Vancomycin Trough 10.3 (10-20) UG/ML Assessment/Plan (1) COPD with exacerbation Current Visit: Yes Status: Acute Assessment & Plan: she is currently on Rocephin, Azithromycin and Vanc as well as IV methylprednisolone and still on 5 L NC O2 but it appears she is really not wearing the O2 continuously. It was turned down to 2L while I was in the room. WIll change her steroid to po and stop the vanc and try to wean the O2 requirements. Code(s): J44.1 - CHRONIC OBSTRUCTIVE PULMONARY DISEASE W (ACUTE) EXACERBATION (2) Tobacco abuse Current Visit: Yes Status: Chronic Code(s): Z72.0 - TOBACCO USE (3) Diabetes Current Visit: Yes Status: Chronic Qualifiers: Diabetes mellitus type: type 1 Diabetes mellitus complication status: without complication Qualified Code(s): E10.9 - Type 1 diabetes mellitus without complications Code(s): E11.9 - TYPE 2 DIABETES MELLITUS WITHOUT COMPLICATIONS (4) Hypoxia Current Visit: Yes Status: Acute Code(s): R09.02 - HYPOXEMIA
[2016-11-22] MEDS: Lantus Insulin SQ SCH (21:47)
[2016-11-23 07:44] VITALS: BP 176/73; PULSE 59; O2SAT 92
--- NOTE | 2016-11-23 07:54 | PCM.DCORD ---
- Discharge Discharge Date: 11/23/16 Disposition: Home, Self-Care Condition: Fair Prescriptions: New Prednisone 10 mg [Deltasone 10 mg] 10 mg PO DAILY #17 tablet Cefdinir [Omnicef] 300 mg PO BID #8 capsule Continue Lisinopril 10 mg [Zestril 10 MG] 10 mg PO HS Albuterol Sulfate [Proair Hfa] 8.5 gm IH Q4H Tramadol HCl 50 mg [Ultram 50 mg] 50 mg PO BID Clonazepam 1 mg PO BID Carvedilol 25 mg PO BID Aspirin 81 mg PO HS Insulin Glargine,Hum.rec.anlog [Lantus] 50 unit SQ HS Diclofenac Sodium 50 mg [Voltaren 50 mg] 50 mg PO BID Gabapentin 300 mg PO HS Instructions: Chronic Obstructive Pulmonary Disease Follow up with: MATTEO ROSALES [Primary Care Provider] -
[2016-11-23] MEDS: Klonopin 0.5 MG PO SCH (08:01)
[2016-11-23] MEDS: VOLTAREN 50 MG PO SCH (08:04)
[2016-11-23] MEDS: ENOXAPARIN SODIUM SQ SCH (08:05)
[2016-11-23] MEDS: DELTASONE 20 MG PO SCH (08:05)
[2016-11-23] MEDS: COREG 12.5 MG PO SCH (08:05)
[2016-11-23] MEDS: ULTRAM 50 MG PO PRN (08:08)
--- NOTE | 2016-11-23 20:05 | PCM.DS ---
Discharge Summary Date of Admission: 11/20/16 19:40 Date of Discharge: 11/23/16 Admitting Physician: FRANCO JOHNSON Primary Care Provider: MATTEO ROSALES Allergies Allergies No Known Drug Allergies Allergy (Verified 11/19/16 15:27) Hospital Summary - Hospital Course Hospital Course: Mrs. Macario is a chronic smoker with COPD who has had recurrent upper and lower respiratory infections the past few months and presented with severe cough and found to be hypoxemic. She was treated for COPD exacerbation and CXR was negative she improved. She did have a blood culture positive that was likely a contaminant with coag neg staph and did not have clinical evidence of bacteremia and she was on vanc after the initial + blood culture. This was stopped she was weaned from IV steroids to prednisone and her oxygen was weaned from its peak at 5L nc O2 which she would only wear intermittently at times but was still on the 5 L the day morning prior to her discharge but the day prior she was able to walk the halls with no oxygen and slept the night prior to discharge then without the O2 and felt much improved. We did discuss importance of not smoking and consideration of overnight pulse ox if she is having any problems in the future. - Vitals & Intake/Output Vital Signs: Vital Signs Temperature 98.0 F 11/23/16 07:43 Pulse Rate 59 L 11/23/16 07:43 Respiratory Rate 18 11/23/16 08:00 Blood Pressure 176/73 11/23/16 07:43 O2 Sat by Pulse Oximetry 92 L 11/23/16 07:43 Oxygen-Last Documented O2 Percentage 2 Liters = 28% Intake & Output: Intake & Output 11/21/16 11/22/16 11/23/16 11/24/16 11:59 11:59 11:59 11:59 Intake Total 1090 1780 2780 Output Total 400 1900 1100 Balance 690 -120 1680 Weight 76.839 kg 75.024 kg 78.154 kg - Lab Result Diagrams: 11/20/16 05:20 11/20/16 05:20 Lab Results-Last 24 Hrs: Accuchecks Date 11/23/16 Date 11/22/16 Time 08:09 Time 22:00 Accucheck Value: 101 Accucheck Value: 441 Micro Results-Entire Visit: Microbiology 11/21/16 07:00 Urine Culture - Final Urine, Void NO GROWTH 11/22/16 04:16 Gram Stain - Final Sputum - Expectorant Accuchecks Date 11/23/16 Date 11/22/16 Time 08:09 Time 22:00 Accucheck Value: 101 Accucheck Value: 441 - Procedures and Test Procedures and Tests throughout Hospitalization: Therapy Orders & Screens 11/22/16 07:54 Oxygen NASAL CANNULA 2 lpm Comment: Diagnosis: EXAC COPD, SEPTICEMIA Discharge Exam General Appearance: no apparent distress Neurologic Exam: alert, oriented x 3, cooperative Skin Exam: warm Eye Exam: No EOMI, No scleral icterus, No pale conjunctivae Ears, Nose, Throat Exam: moist mucous membranes Neck Exam: normal inspection, non-tender, supple Respiratory Exam: normal breath sounds, No respiratory distress Cardiovascular Exam: regular rate/rhythm, normal heart sounds, No murmur Gastrointestinal/Abdomen Exam: soft, normal bowel sounds, No tenderness Extremity Exam: normal inspection, No pedal edema Final Diagnosis/Problem List - Final Discharge Diagnosis/Problem (1) COPD with exacerbation Status: Acute (2) Tobacco abuse Status: Chronic (3) Diabetes Status: Chronic (4) Hypoxia Status: Acute - Discharge Discharge Date: 11/23/16 Disposition: Home, Self-Care Condition: Fair Prescriptions: New Prednisone 10 mg [Deltasone 10 mg] 10 mg PO DAILY #17 tablet Cefdinir [Omnicef] 300 mg PO BID #8 capsule Continue Lisinopril 10 mg [Zestril 10 MG] 10 mg PO HS Albuterol Sulfate [Proair Hfa] 8.5 gm IH Q4H Tramadol HCl 50 mg [Ultram 50 mg] 50 mg PO BID Clonazepam 1 mg PO BID Carvedilol 25 mg PO BID Aspirin 81 mg PO HS Insulin Glargine,Hum.rec.anlog [Lantus] 50 unit SQ HS Diclofenac Sodium 50 mg [Voltaren 50 mg] 50 mg PO BID Gabapentin 300 mg PO HS Instructions: Chronic Obstructive Pulmonary Disease, Quit Smoking Follow up with: MATTEO ROSALES [Primary Care Provider] - 11/30/16 10:00 am (made with Dr. Rosalio Robbins ) Forms: Work/School Release Form
== END 2016-11-23 11:00 | disposition home or self-care (01) | DRG 192 ==
LOC: ED 15:10 → MED SURG 18:27 → OBSVTOIN 11-20 19:40
PROVIDERS: ADMIT Family Medicine; ATTEND Family Medicine
DX: J44.1 Chronic obstructive pulmonary disease with (acute) exacerbation (principal); R09.02 Hypoxemia; E11.9 Type 2 diabetes mellitus without complications; Z79.4 Long term (current) use of insulin; E10.9 Type 1 diabetes mellitus without complications; Z72.0 Tobacco use; G62.9 Polyneuropathy, unspecified; M81.0 Age-related osteoporosis without current pathological fracture; F41.9 Anxiety disorder, unspecified; F31.9 Bipolar disorder, unspecified
CPT/HCPCS: 36000; 36415; 71010; 80053; 80202; 81000; 82805; 82962; 83036; 84484; 85025; 85379; 87040; 87070; 87086; 87631; 93005; 93268; 94640; 94760; 96374; 99285; A9270; G0378; J0456; J0696; J1650; J2920; J2930; J3370

== ENCOUNTER 2017-01-18 14:54 | Inpatient (IN) | payer MEDICAID ==
[2017-01-18] MEDS ORDERED: Zithromax 500 MG/ 250 ML NaCl Premix 250 ML IV ONE ×2 (15:25→15:48)
[2017-01-18] MEDS ORDERED: ROCEPHIN 1 Gm-D5w 50 ml Bag** 50 ML IV ONE ×2 (15:25→15:48)
[2017-01-18] MEDS ORDERED: solu-MEDROL 125 MG IV ONE (15:25)
[2017-01-18] MEDS ORDERED: Sodium Chloride 0.9% 1000 ML 1,000 ML IV STA (15:25)
[2017-01-18] MEDS ORDERED: PROVENTIL 2.5 MG/3 ML NEB IH ONE (15:28)
--- NOTE | 2017-01-18 15:32 | ERPHSYRPT ---
- History of Present Illness Time Seen by Provider: 01/18/17 15:20 Source: patient Exam Limitations: clinical condition Patient Subjective Stated Complaint: cough and trouble breathing for three weeks. Triage Nursing Assessment: ambulated to room with moderate sob noted. skin w/d , color normal. sats 78% on room air. patient seen in office this am and was supposed to be admitted but patient refused. went home and then felt worse so she presented in ed. occasional prod cough of white sputum. breath sounds diminshed. Physician History: PATIENT WITH HISTORY OF COPD, HAS PROGRESSIVE DYSPNEA, PRODUCTIVE COUGH, WHITE SPUTUM, FEVER, AND EXERTIONAL DYSPNEA. HAS MARKED DYSPNEA. Timing/Duration: week(s) Activities at Onset: none Severity of Dyspnea-Max: severe Severity of Dyspnea-Current: severe Possible Cause: occasional episodes Associated Symptoms: cough (DYSPNEA) Allergies/Adverse Reactions: No Known Drug Allergies Allergy (Verified 01/18/17 15:19) Home Medications: Albuterol Sulfate [Proair Hfa] 8.5 gm IH Q4H 03/27/14 [History] Lisinopril 10 mg [Zestril 10 MG] 10 mg PO HS 03/27/14 [History] Tramadol HCl 50 mg [Ultram 50 mg] 50 mg PO BID 03/27/14 [History] Carvedilol 25 mg PO BID 04/10/14 [History] Aspirin 81 mg PO HS 07/30/15 [History] Diclofenac Sodium 50 mg [Voltaren 50 mg] 50 mg PO BID 11/19/16 [History] Insulin Glargine,Hum.rec.anlog [Lantus] 50 unit SQ HS 11/19/16 [History] Gabapentin 300 mg PO HS 11/20/16 [History] Citalopram Hydrobromide 20 mg* [ceLEXa 20 MG] 20 mg PO DAILY 01/18/17 [ History] Hx Tetanus, Diphtheria Vaccination/Date Given: Yes Hx Influenza Vaccination/Date Given: No Hx Pneumococcal Vaccination/Date Given: Yes Immunizations Up to Date: No - Review of Systems Constitutional: Fever, Chills Eyes: No Symptoms Ears, Nose, & Throat: No Symptoms Respiratory: Cough, Dyspnea, Dyspnea on Exertion (BOSWELL), Wheezing Cardiac: No Symptoms, No Chest Pain, No Edema, No Syncope Abdominal/Gastrointestinal: No Symptoms, No Abdominal Pain, No Nausea, No Vomiting, No Diarrhea Genitourinary Symptoms: No Symptoms, No Dysuria Musculoskeletal: No Symptoms, No Back Pain, No Neck Pain Skin: No Symptoms, No Rash Neurological: No Symptoms, No Dizziness, No Focal Weakness, No Sensory Changes Psychological: No Symptoms Endocrine: No Symptoms All Other Systems: Reviewed and Negative - Past Medical History Pertinent Past Medical History: Yes Neurological History: No Pertinent History, Peripheral Neuropathy ENT History: Cataracts Cardiac History: Hypertension Respiratory History: COPD Endocrine Medical History: Diabetes Type II Musculoskeletal History: Osteoporosis, Other GI Medical History: Other History: No Pertinent History Psycho-Social History: Anxiety, Bipolar Female Reproductive Disorders: No Pertinent History Other Medical History: spastic colon, carpal tunnel bilateral arms - Past Surgical History Past Surgical History: Yes Neuro Surgical History: No Pertinent History Cardiac: No Pertinent History Respiratory: No Pertinent History Gastrointestinal: Cholecystectomy Genitourinary: No Pertinent History Musculoskeletal: No Pertinent History Female Surgical History: Hysterectomy Other Surgical History: gallbladder removed - Social History Smoking Status: Current every day smoker How long have you smoked: 30 Exposure to second hand smoke: Yes Drug Use: none Patient Lives Alone: No - Nursing Vital Signs Nursing Vital Signs: Initial Vital Signs Temperature 102.5 F Temperature Source Oral Pulse Rate 94 Respiratory Rate 20 Blood Pressure [] 101/52 Pain Intensity 9 - Physical Exam General Appearance: mild distress Eye Exam: PERRL/EOMI Neck Exam: normal inspection, supple Respiratory Exam: diminished breath sounds, rhonchi, wheezing Cardiovascular/Chest Exam: normal heart sounds, regular rate/rhythm Abdominal/Gastrointestinal Exam: soft, normal bowel sounds, No tenderness, No distention, No mass Extremity Exam: non-tender, normal range of motion, normal inspection, no calf tenderness, no pedal edema Peripheral Pulses Exam: carotid (R): 2+, carotid (L): 2+, femoral (R): 2+, femoral (L): 2+, dorsalis-pedis (R): 2+, dorsalis-pedis (L): 2+ Neurologic Exam: alert, oriented x 3, cooperative, library media assistant II-XII nml as tested, sensation nml, No motor deficits Skin Exam: normal color, warm, No dry SpO2 Interpretation: hypoxic SpO2: 78 Oxygen Delivery: Room Air - Radiology Exams Chest X-ray Interpretation: Discussed w/ radiologist, Negative - CT Exams Chest CT Interpretation: Discussed w/radiologist (DIFFUSE SUBTLE HAZY AIR SPACE OPACITES BILATERALLY, THERE IS PROMINENT MEDIASTINAL AND BILATERAL HILAR NODES) Ordered Tests: Active Orders 24 hr Category Date Time Status Up With Assistance ROUTINE Activity 01/18/17 18:55 Ordered Accucheck ACHS Care 01/18/17 18:55 Ordered Admission/Status Order ROUTINE Care 01/18/17 18:55 Ordered CO2 Monitoring STAT Care 01/18/17 15:25 Active Clinical Nurse Educator STAT Care 01/18/17 15:25 Active Clean Catch Urine Specimen STAT Care 01/18/17 15:25 Active Code Status Order ROUTINE Care 01/18/17 18:55 Ordered EKG-ER Only STAT Care 01/18/17 15:25 Active IV Care Q6H Care 01/18/17 18:55 Ordered IV Insertion STAT Care 01/18/17 15:25 Active Oxygen-ED Only NASAL CANNULA 3 lpm Care 01/18/17 15:25 Active Artur Hose, Apply ROUTINE Care 01/18/17 18:55 Ordered Vital Signs Q4H Care 01/18/17 18:55 Ordered Weight,Daily 0600 Care 01/18/17 18:55 Ordered 1800 Calorie ADA Diet 01/18/17 Breakfast Ordered CHEST 1 VIEW (PORTABLE) Stat Exams 01/18/17 15:26 Completed CHEST WITH CONTRAST [CT] Stat Exams 01/18/17 16:51 Taken ABG [ARTERIAL BLOOD GASES] Urgent Lab 01/18/17 16:56 Completed ARTERIAL BLOOD GASES Urgent Lab 01/18/17 15:25 Stop Req BLOOD CULTURE Stat Lab 01/18/17 15:42 Received CBC W DIFF Stat Lab 01/18/17 15:40 Completed CMP Stat Lab 01/18/17 15:40 Completed D-DIMER QUANTITATION Stat Lab 01/18/17 15:40 Completed Lactic Acid Urgent Lab 01/18/17 15:25 Stop Req Lactic Acid Urgent Lab 01/18/17 15:57 Completed MAGNESIUM Stat Lab 01/18/17 15:40 Completed NT PRO BNP Stat Lab 01/18/17 15:40 Completed PROTIME WITH INR Stat Lab 01/18/17 15:40 Completed TROPONIN Stat Lab 01/18/17 15:40 Completed UA Stat Lab 01/18/17 15:26 Ordered Oxygen NASAL CANNULA 2 lpm RT 01/18/17 18:55 Ordered Respiratory Nebulizer STAT RT 01/18/17 15:29 Active Respiratory Therapy Consult ROUTINE RT 01/18/17 18:55 Ordered Transfer Order Routine Transfer 01/18/17 18:54 Ordered Medication Summary Discontinued Medications Generic Name Dose Route Start Last Admin Trade Name Eduardoq PRN Reason Stop Dose Admin Acetaminophen 650 mg 01/18/17 15:38 01/18/17 15:55 Tylenol 325 Mg PO 01/18/17 15:39 650 mg STAT STA Administration Acetaminophen Confirm 01/18/17 15:48 Tylenol 325 Mg Administered 01/18/17 15:49 Dose 650 mg .ROUTE .STK-MED ONE Albuterol Sulfate 10 mg 01/18/17 15:28 01/18/17 15:44 Proventil 2.5 Mg/3 Ml Neb IH 01/18/17 15:29 10 mg STAT ONE Administration Albuterol Sulfate Confirm 01/18/17 15:36 Proventil Solution 2.5 Mg/0.5 Ml Administered 01/18/17 15:37 Dose 10 mg IH .STK-MED ONE Azithromycin 250 mls @ 125 mls/hr 01/18/17 15:25 01/18/17 15:57 Zithromax 500 Mg/ 250 Ml Nacl Premix IV 01/18/17 17:24 125 mls/hr STAT ONE Administration Ceftriaxone Sodium/Dextrose 50 mls @ 100 mls/hr 01/18/17 15:25 01/18/17 15:58 Rocephin 1 Gm-D5w 50 Ml Bag IV 01/18/17 15:54 100 mls/hr STAT ONE Administration Sodium Chloride 1,000 mls @ 999 mls/hr 01/18/17 15:25 01/18/17 15:58 Sodium Chloride 0.9% 1000 Ml IV 01/18/17 16:25 999 mls/hr .Q1H1M STA Administration Azithromycin Confirm 01/18/17 15:48 Zithromax 500 Mg/ 250 Ml Nacl Premix Administered 01/18/17 15:49 Dose 250 mls @ ud IV .STK-MED ONE Sodium Chloride Confirm 01/18/17 15:48 Sodium Chloride 0.9% 1000 Ml Administered 01/18/17 15:49 Dose 1,000 mls @ ud .ROUTE .STK-MED ONE Ceftriaxone Sodium/Dextrose Confirm 01/18/17 15:48 Rocephin 1 Gm-D5w 50 Ml Bag Administered 01/18/17 15:49 Dose 50 mls @ ud IV .STK-MED ONE Methylprednisolone Sodium Succinate 125 mg 01/18/17 15:25 01/18/17 15:55 Solu-Medrol 125 Mg IV 01/18/17 15:26 125 mg STAT ONE Administration Methylprednisolone Sodium Succinate Confirm 01/18/17 15:48 Solu-Medrol 125 Mg Administered 01/18/17 15:49 Dose 125 mg .ROUTE .STK-MED ONE Sodium Chloride Confirm 01/18/17 15:36 Sodium Chloride 3 Ml Ud Nebules Administered 01/18/17 15:37 Dose 9 ml IH .STK-MED ONE Lab/Rad Data: Laboratory Result Diagrams 01/18/17 15:40 01/18/17 15:40 Laboratory Results 01/18/17 01/18/17 01/18/17 Range/Units 16:56 15:57 15:40 WBC (4.0-10.5) K/mm3 RBC (4.1-5.4) M/mm3 Hgb (12.0-16.0) gm/dl Hct (35-47) % MCV (78-100) fl MCH (26-32) pg MCHC (32-36) g/dl RDW (11.5-14.0) % Plt Count (150-450) K/mm3 MPV (6-9.5) fl Gran % (36.0-66.0) % Lymphocytes % (24.0-44.0) % Monocytes % (0.0-12.0) % Eosinophils % (0.00-5.0) % Basophils % (0.0-0.4) % Basophils # (0-0.4) INR (0.8-3.0) D-Dimer (0.00-0.49) mg/L Puncture Site LEFT RADIAL pCO2 44 (35-45) mmHg pO2 49 L* (75-100) mmHg Base Excess 0.5 (-2.0-2.0) O2 Saturation 84.4 L (94-100) g/dF ABG pH 7.38 (7.35-7.45) ABG HCO3 26.0 (22-28) ABG O2 Sat (Measured) 89.8 L (95-100) % Gopi Test YES A-a Gradient 153 a/A Ratio 0.24 Hemoglobin 13.2 Carboxyhemoglobin 4.6 (0.0-6.9) % THgb Methemoglobin 1.4 (1.4-1.5) % Temperature 37.0 C POC O2 Flow Rate 36 % Sodium (136-145) mEq/L Potassium 3.4 L (3.5-5.1) mEq/L Chloride (98-107) mEq/L Carbon Dioxide (21-32) mEq/L Anion Gap (5-15) MEQ/L BUN (9-20) mg/dL Creatinine (0.55-1.30) mg/dl Estimated GFR ML/MIN Glucose (70-110) MG/DL Lactic Acid 1.0 (0.4-2.0) Calcium (8.5-10.1) mg/dL Magnesium (1.8-2.4) mg/dL Total Bilirubin (0.2-1.0) mg/dL AST (15-37) U/L ALT (12-78) U/L Alkaline Phosphatase (46-116) U/L Troponin I (0.000-0.056) ng/ml NT-Pro-B Natriuret Pep (0-125) pg/ml Serum Total Protein (6.4-8.2) gm/dL Albumin (3.4-5.0) g/dL Influenza Type A Ag NEGATIVE (NEGATIVE) Influenza Type B Ag NEGATIVE (NEGATIVE) RSV (PCR) NEGATIVE (Negative) 01/18/17 01/18/17 01/18/17 Range/Units 15:40 15:40 15:40 WBC 10.5 (4.0-10.5) K/mm3 RBC 5.19 (4.1-5.4) M/mm3 Hgb 14.2 (12.0-16.0) gm/dl Hct 43.3 (35-47) % MCV 83.4 (78-100) fl MCH 27.4 (26-32) pg MCHC 32.8 (32-36) g/dl RDW 15.3 H (11.5-14.0) % Plt Count 176 (150-450) K/mm3 MPV 10.5 H (6-9.5) fl Gran % 78.3 H (36.0-66.0) % Lymphocytes % 12.1 L (24.0-44.0) % Monocytes % 9.1 (0.0-12.0) % Eosinophils % 0.2 (0.00-5.0) % Basophils % 0.3 (0.0-0.4) % Basophils # 0.03 (0-0.4) INR 1.16 (0.8-3.0) D-Dimer 0.617 H* (0.00-0.49) mg/L Puncture Site pCO2 (35-45) mmHg pO2 (75-100) mmHg Base Excess (-2.0-2.0) O2 Saturation (94-100) g/dF ABG pH (7.35-7.45) ABG HCO3 (22-28) ABG O2 Sat (Measured) (95-100) % Gopi Test A-a Gradient a/A Ratio Hemoglobin Carboxyhemoglobin (0.0-6.9) % THgb Methemoglobin (1.4-1.5) % Temperature C POC O2 Flow Rate % Sodium 138 (136-145) mEq/L Potassium 3.5 (3.5-5.1) mEq/L Chloride 100 (98-107) mEq/L Carbon Dioxide 29.1 (21-32) mEq/L Anion Gap 12.8 (5-15) MEQ/L BUN 15 (9-20) mg/dL Creatinine 0.80 (0.55-1.30) mg/dl Estimated GFR > 60 ML/MIN Glucose 171 H (70-110) MG/DL Lactic Acid (0.4-2.0) Calcium 9.1 (8.5-10.1) mg/dL Magnesium 1.7 L (1.8-2.4) mg/dL Total Bilirubin 0.6 (0.2-1.0) mg/dL AST 34 (15-37) U/L ALT 34 (12-78) U/L Alkaline Phosphatase 106 (46-116) U/L Troponin I < 0.017 (0.000-0.056) ng/ml NT-Pro-B Natriuret Pep 132 H (0-125) pg/ml Serum Total Protein 7.6 (6.4-8.2) gm/dL Albumin 3.7 (3.4-5.0) g/dL Influenza Type A Ag (NEGATIVE) Influenza Type B Ag (NEGATIVE) RSV (PCR) (Negative) - Progress Progress Note: 01/18/17 15:42 PATIENT PLACED ONTO SEPSIS PROTOCOL AT 1530 IV NORMAL SALINE 73KG/30ML 2500ML OVER 3 HOURS, AFTER 2 SETS OF BLOOD CULTURES ROCEPHIN 1GM, ZITHROMAX 500MG IVPB , SOLUMEDROL 125MG IV, A CONTINUOUS ALBUTEROL 10MG OVER I HOUR. Discussed with : Roney Will see patient in: hospital (observation) (AT 1830 FOR ADMISSION) - Departure Time of Disposition: 19:00 Departure Disposition: Observation Clinical Impression: ACUTE EXACERBATION COPD, PNEUMONIA Condition: Stable Critical Care Time: No Referrals: MATTEO ROSALES [Primary Care Provider] -
[2017-01-18] MEDS ORDERED: Sodium Chloride 3 ML UD NEBULES IH ONE (15:36)
[2017-01-18] MEDS ORDERED: PROVENTIL Solution 2.5 MG/0.5 ML IH ONE (15:36)
[2017-01-18] MEDS ORDERED: TYLENOL 325 MG PO STA (15:38)
[2017-01-18] MEDS ORDERED: solu-MEDROL 125 MG ONE (15:48)
[2017-01-18] MEDS ORDERED: Sodium Chloride 0.9% 1000 ML 1,000 ML ONE (15:48)
[2017-01-18] MEDS ORDERED: TYLENOL 325 MG ONE (15:48)
[2017-01-18 16:02] LABS: BASOPHIL % 0.3 % (0.0-0.4); Eosinophil % 0.2 % (0.00-5.0); Granulocytes % 78.3 % (36.0-66.0); Lymphocytes % 12.1 % (24.0-44.0); Mean Cell Volume 83.4 fl (78-100); Mean Corpuscular Hemoglobin 27.4 pg (26-32); Mean Platelet Volume 10.5 fl (6-9.5); Monocytes % 9.1 % (0.0-12.0); Platelet Count 176 K/mm3 (150-450); Red Blood Count 5.19 M/mm3 (4.1-5.4); Red Cell Distribution Width 15.3 % (11.5-14.0); White Blood Count 10.5 K/mm3 (4.0-10.5)
--- NOTE | 2017-01-18 16:05 | XRAY ---
Indication: Cough and short of breath. Comparison: November 19, 2016. Portable chest remains clear. Heart is not enlarged. Bony thorax intact. No new/acute findings.
[2017-01-18 16:25] LABS: INR 1.16 (0.8-3.0); PROTIME 12.9 SECONDS (9.95-12.35)
[2017-01-18 16:42] LABS: ALBUMIN 3.7 g/dL (3.4-5.0); ALKALINE PHOSPHATASE 106 U/L (46-116); ANION GAP 12.8 MEQ/L (5-15); BILIRUBIN,TOTAL 0.6 mg/dL (0.2-1.0); BLOOD UREA NITROGEN 15 mg/dL (9-20); CHLORIDE 100 mEq/L (98-107); Carbon Dioxide 29.1 mEq/L (21-32); Glucose 171 MG/DL (70-110); MAGNESIUM 1.7 mg/dL (1.8-2.4); Potassium 3.5 mEq/L (3.5-5.1); SGOT/AST 34 U/L (15-37); SGPT/ALT 34 U/L (12-78); SODIUM 138 mEq/L (136-145); Total Protein 7.6 gm/dL (6.4-8.2)
[2017-01-18 16:43] LABS: TROPONIN < 0.017 ng/ml (0.000-0.056)
[2017-01-18 16:56] LABS: A-aADO2 153; ARTERIAL BLD GAS O2 SATURATION 89.8 % (95-100); ARTERIAL BLOOD GAS BASE EXCESS 0.5 (-2.0-2.0); ARTERIAL BLOOD GAS FIO2 36 %; ARTERIAL BLOOD GAS pH 7.38 (7.35-7.45)
[2017-01-18 16:57] LABS: ALLEN TEST OK? YES; ARTERIAL BLOOD GAS PO2 49 mmHg (75-100)
[2017-01-18] MEDS ORDERED: Xopenex 1.25 MG/0.5 ML UD NEBULE IH PRN (18:58)
[2017-01-18] MEDS: Sodium Chloride 0.9% 1000 ML 1,000 ML IV SCH (20:10)
[2017-01-18 23:16] LABS: Collection Type CLEAN CATCH
[2017-01-18 23:17] LABS: Bacteria RARE /HPF (NEGATIVE); COMPLETE URINE MICROSCOPIC? YES; Epithelial Cells FEW /HPF (FEW); WBC 0-2 /HPF (0-5)
[2017-01-18] MEDS: DUONEB 0.5-3 MG/3 ml Neb IH SCH (23:18)
[2017-01-18] MEDS ORDERED: ECOTRIN 81 MG PO ONE (23:40)
[2017-01-18] MEDS ORDERED: ULTRAM 50 MG ONE (23:41)
[2017-01-18] MEDS ORDERED: Lantus Insulin ONE (23:42)
[2017-01-18] MEDS ORDERED: Zestril 10 MG ONE (23:43)
[2017-01-18] MEDS ORDERED: NEURONTIN 300 MG ONE (23:43)
[2017-01-19] MEDS ORDERED: Coreg 6.25 MG PO ONE
[2017-01-19] MEDS: ECOTRIN 81 MG PO SCH ×2 (00:01→20:39)
[2017-01-19] MEDS: ULTRAM 50 MG PO SCH ×2 (00:01→20:40)
[2017-01-19] MEDS: NEURONTIN 300 MG PO SCH ×2 (00:02→20:40)
[2017-01-19] MEDS: DUONEB 0.5-3 MG/3 ml Neb IH SCH ×6 (03:08→19:15)
[2017-01-19] MEDS: solu-MEDROL 125 MG IV SCH ×4 (05:19→18:05)
[2017-01-19] MEDS: Sodium Chloride 0.9% 1000 ML 1,000 ML IV SCH (06:36)
--- NOTE | 2017-01-19 08:17 | PCM.HP ---
History of Present Illness - Chief Complaint Chief Complaint: Acute exacerbation COPD/pneumonia Date: 01/19/17 History of Present Illness: is a 56 year old female. feeling bad for 3 days with coughing weakness shortness of breath no fever nausea or vomiting was smoking 1ppd cut back to 1/2 ppd and stopped yesterday. no sick contacts. - Review of Systems Constitutional: Fatigue, No Fever, No Chills Eyes: No Symptoms Ears, Nose, & Throat: No Symptoms Respiratory: Short Of Breath, No Cough Cardiac: No Chest Pain, No Edema, No Syncope Abdominal/Gastrointestinal: No Abdominal Pain, No Nausea, No Vomiting, No Diarrhea Genitourinary Symptoms: No Dysuria Musculoskeletal: No Back Pain, No Neck Pain Skin: No Rash Neurological: No Dizziness, No Focal Weakness, No Sensory Changes Psychological: No Symptoms Endocrine: No Symptoms Hematologic/Lymphatic: No Symptoms Immunological/Allergic: No Symptoms Medications & Allergies Home Medications: Home Medication List Albuterol Sulfate [Proair Hfa] 8.5 gm IH Q4H 03/27/14 [History Confirmed ] Lisinopril 10 mg [Zestril 10 MG] 10 mg PO HS 03/27/14 [History Confirmed 01/18/17] Tramadol HCl 50 mg [Ultram 50 mg] 50 mg PO BID 03/27/14 [History Confirmed 01/18/17] Carvedilol 25 mg PO BID 04/10/14 [History Confirmed 01/18/17] Aspirin 81 mg PO HS 07/30/15 [History Confirmed 01/18/17] Diclofenac Sodium 50 mg [Voltaren 50 mg] 50 mg PO BID 11/19/16 [History Confirmed 01/18/17] Insulin Glargine,Hum.rec.anlog [Lantus] 20 unit SQ HS 11/19/16 [History Confirmed 01/19/17] Gabapentin 300 mg PO HS 11/20/16 [History Confirmed 01/18/17] Prednisone 10 mg [Deltasone 10 mg] 10 mg PO DAILY #17 tablet 11/23/16 [Rx Confirmed 01/18/17] Citalopram Hydrobromide 20 mg* [ceLEXa 20 MG] 20 mg PO DAILY 01/18/17 [ History Confirmed 01/18/17] Allergies/Adverse Reactions: Allergies Allergy/AdvReac Type Severity Reaction Status Date / Time No Known Drug Allergies Allergy Verified 01/18/17 15:19 - Past Medical History Past Medical History: Yes Neurological History: No Pertinent History, Peripheral Neuropathy ENT History: Cataracts Cardiac History: Hypertension Respiratory History: COPD Endocrine Medical History: Diabetes Type II Musculoskelatal History: Osteoporosis, Other GI Medical History: Other History: No Pertinent History Pyscho-Social History: Anxiety, Bipolar Reproductive Disorders: No Pertinent History Comment: spastic colon, carpal tunnel bilateral arms - Female History Are you now?: No - Past Surgical History Past Surgical History: Yes Neuro Surgical History: No Pertinent History Cardiac History: No Pertinent History Respiratory Surgery: No Pertinent History GI Surgical History: Cholecystectomy Genitourinary Surgical Hx: No Pertinent History Musculskeletal Surgical Hx: No Pertinent History Female Surgical History: Hysterectomy Other Surgical History: gallbladder removed - Social History Smoking Status: Current every day smoker How long have you smoked: 30 Exposure to second hand smoke: Yes Alcohol: None Drug Use: none - Physical Exam Vital Signs: Vital Signs - 24 hr Temp Pulse Resp BP Pulse Ox 01/19/17 07:46 96.7 F 94 H 24 111/59 96 01/19/17 07:30 93 L 01/19/17 06:57 94 H 20 96 01/19/17 04:00 98.1 F 69 20 109/56 91 L 01/19/17 03:09 69 20 91 L 01/19/17 00:00 98.0 F 78 20 94/53 94 L 01/18/17 23:21 78 22 94 L 01/18/17 21:46 74 24 93 L 01/18/17 21:36 71 24 91 L 01/18/17 20:55 98.4 F 78 20 113/60 92 L 01/18/17 20:00 98.4 F 78 20 113/60 92 L 01/18/17 18:59 78 L 01/18/17 18:38 94 H 20 101/52 84 L 01/18/17 16:59 62 22 123/65 01/18/17 16:13 103 H 24 116/38 89 L 01/18/17 15:29 103 H 22 90 L 01/18/17 14:59 102.5 F 115 H 24 140/58 78 L Oxygen-Last 24 hours O2 Percentage 6 Liters = 44% O2 Percentage 6 Liters = 44% O2 Percentage 6 Liters = 44% O2 Percentage 4 Liters = 36% General Appearance: no apparent distress, alert Neurologic Exam: alert, oriented x 3, cooperative, normal mood/affect, nml cerebellar function, nml station & gait, sensation nml, No motor deficits Eye Exam: PERRL/EOMI, eyes nml inspection Ears, Nose, Throat Exam: normal ENT inspection, TMs normal, pharynx normal, moist mucous membranes Neck Exam: normal inspection, non-tender, supple, full range of motion Respiratory Exam: lungs clear, crackles/rales (posterior lower lobes), wheezing (diffuse), No respiratory distress Cardiovascular Exam: regular rate/rhythm, normal heart sounds, normal peripheral pulses Gastrointestinal/Abdomen Exam: soft, normal bowel sounds, No tenderness, No mass Back Exam: normal inspection, normal range of motion, No CVA tenderness, No vertebral tenderness Extremity Exam: normal inspection, normal range of motion, pelvis stable Skin Exam: normal color, warm, dry, No rash Lymphatic Exam: No adenopathy Results - Labs Lab/Micro Results: Accuchecks Date 01/19/17 Time 07:30 Accucheck Value: 201 Accucheck Value: 227 Lab Results-Last 24 Hours 01/18/17 Range/Units 22:45 Ur Collection Type CLEAN CATCH Urine Color YELLOW (YELLOW) Urine Appearance CLEAR (CLEAR) Urine pH 5.0 (5-6) Ur Specific [place] 1.025 (1.005-1.025) Urine Protein 30 (Negative) Urine Glucose (UA) 250 (NEGATIVE) mg/dL Urine Ketones LARGE-80 (NEGATIVE) Urine Nitrite NEGATIVE (NEGATIVE) Urine Bilirubin NEGATIVE (NEGATIVE) Urine Urobilinogen 0.2 (0-1) mg/dL Urine WBC (Auto) NEGATIVE (NEGATIVE) Urine RBC (Auto) SMALL (0-5) Dc/ul Urine Microscopic RBC 2-5 (0-2) /HPF Urine Microscopic WBC 0-2 (0-5) /HPF Ur Epithelial Cells FEW (FEW) /HPF Amorphous Crystals FEW (NEGATIVE) /HPF Urine Bacteria RARE (NEGATIVE) /HPF Specimen Received 01/18/17:2300 Accuchecks Date 01/19/17 Time 07:30 Accucheck Value: 201 Accucheck Value: 227 - Other Procedures and Tests Respiratory Therapy 01/18/17 18:55 Oxygen NASAL CANNULA 2 lpm 01/18/17 22:48 neb [Respiratory Nebulizer] Q4H Assessment/Plan (1) COPD with exacerbation Current Visit: Yes Status: Acute Assessment & Plan: continue ceftriaxone/azithromycin with the pneumonitis and hilar adenopathy continue solumedrol, add H2 hardik stop diclofenac for GI ppx continue nebs wean O2 as tolerated currently on oximizer lovenox for dvt ppx Code(s): J44.1 - CHRONIC OBSTRUCTIVE PULMONARY DISEASE W (ACUTE) EXACERBATION (2) Diabetes Current Visit: Yes Status: Chronic Qualifiers: Assessment & Plan: continue lantus add sliding scale Code(s): E11.9 - TYPE 2 DIABETES MELLITUS WITHOUT COMPLICATIONS (3) Pulmonary nodule Current Visit: Yes Status: Acute Code(s): R91.1 - SOLITARY PULMONARY NODULE
--- NOTE | 2017-01-19 08:42 | XRAY ---
Indication: Short of breath. Elevated d-dimer. Multiple contiguous axial images obtained through the chest using 80 cc Isovue 370 contrast and PE protocol. Comparison: None There is satisfactory opacification of the pulmonary arteries including the lobar and segmental branches. No filling defect or pulmonary embolus. The heart is not enlarged. Aorta is normal in course and caliber. There are several prominent mediastinal and bilateral hilar lymph nodes. Largest is subcarinal measuring 1.2 x 4.2 cm. Examination of the lung parenchyma demonstrates subtle diffuse hazy airspace opacities bilaterally, possible pneumonitis. No consolidation or large effusion. 1 cm noncalcified subpleural nodularity seen in the posterior medial right upper lobe. Bony thorax intact. Limited upper abdomen demonstrates 13 cm splenomegaly, cholecystectomy, and 3.1 cm left adrenal adenoma. Impression: 1. Negative for pulmonary embolus. 2. Subtle diffuse hazy airspace opacities bilaterally. Rule out pneumonitis. 3. Prominent mediastinal and bilateral hilar lymph nodes possibly reactive. Cannot completely exclude primary/metastatic malignancy in the right clinical setting. 4. Indeterminate 1 cm right upper lobe noncalcified nodule. 5. Splenomegaly. 6. Left adrenal adenoma unchanged with respect to CT abdomen April 16, 2013. CT DI 18.72
[2017-01-19] MEDS: Pepcid 20 MG PO SCH ×2 (09:08→20:39)
[2017-01-19] MEDS: ceLEXa 20 MG PO SCH (09:08)
[2017-01-19] MEDS: COREG 12.5 MG PO SCH ×2 (09:08→20:39)
[2017-01-19] MEDS: NovoLOG Insulin SQ PRN ×4 (09:09→21:12)
[2017-01-19] MEDS: Zithromax 500 MG/ 250 ML NaCl Premix 250 ML IV SCH (09:09)
[2017-01-19] MEDS: ROCEPHIN 1 Gm-D5w 50 ml Bag** 50 ML IV SCH (09:09)
[2017-01-19] MEDS: ENOXAPARIN SODIUM SQ SCH (09:09)
[2017-01-19] MEDS ORDERED: VOLTAREN 50 MG PO SCH (10:00)
[2017-01-19] MEDS ORDERED: NON-FORMULARY ITEM (Carvedilol [Carvedilol] 25 MG) PO SCH (10:00)
[2017-01-19] MEDS: Ambien 5 MG Tablet PO SCH (20:40)
[2017-01-19] MEDS: Lantus Insulin SQ SCH (21:13)
[2017-01-19] MEDS ORDERED: Zestril 10 MG PO SCH (22:00)
[2017-01-19] MEDS ORDERED: Lantus Insulin SQ SCH ×2 (22:00)
[2017-01-20] MEDS: DUONEB 0.5-3 MG/3 ml Neb IH SCH ×6 (00:02→23:26)
[2017-01-20] MEDS: solu-MEDROL 125 MG IV SCH ×4 (00:04→20:12)
[2017-01-20] MEDS: ROCEPHIN 1 Gm-D5w 50 ml Bag** 50 ML IV SCH (10:15)
[2017-01-20] MEDS: ceLEXa 20 MG PO SCH (10:15)
[2017-01-20] MEDS: ENOXAPARIN SODIUM SQ SCH (10:15)
[2017-01-20] MEDS: COREG 12.5 MG PO SCH ×2 (10:15→20:12)
[2017-01-20] MEDS: Pepcid 20 MG PO SCH ×2 (10:15→20:11)
[2017-01-20] MEDS: Zithromax 500 MG/ 250 ML NaCl Premix 250 ML IV SCH (10:59)
[2017-01-20] MEDS: NovoLOG Insulin SQ PRN ×2 (11:51→21:18)
[2017-01-20] MEDS ORDERED: solu-MEDROL 125 MG IV SCH (12:00)
--- NOTE | 2017-01-20 12:00 | PCM.NOTE ---
Date and Time: 01/20/17 1154 Subjective Assessment: still on the oximizer. She took it off yesterday and tried to walk without talking to nursing first and immediately realized that was a bad idea she had a desat to the 40% range. when back on it felt much better still coughing slept well eating well. Objective Exam General Appearance: no apparent distress, alert Neurologic Exam: alert, oriented x 3, cooperative, normal mood/affect, nml cerebellar function, sensation nml, No motor deficits Skin Exam: normal color, warm, dry Eye Exam: PERRL, EOMI, eyes nml inspection Ears, Nose, Throat Exam: normal ENT inspection, pharynx normal, moist mucous membranes Neck Exam: normal inspection, non-tender, supple, full range of motion Respiratory Exam: diminished breath sounds, prolonged expirations, crackles/ rales, rhonchi, wheezing Cardiovascular Exam: regular rate/rhythm, normal heart sounds Gastrointestinal/Abdomen Exam: soft, No tenderness, No mass Extremity Exam: normal inspection, normal range of motion Back Exam: normal inspection, normal range of motion, No CVA tenderness, No vertebral tenderness Pelvic Exam: deferred Rectal Exam: deferred OBJECTIVE DATA Vital Signs: Vital Signs - 24 hr Temp Pulse Resp BP Pulse Ox 01/20/17 11:30 97.8 F 57 L 18 140/68 95 01/20/17 10:37 59 L 16 93 L 01/20/17 08:52 64 16 98 01/20/17 07:17 98.4 F 85 24 113/57 96 01/20/17 04:00 97.9 F 53 L 17 90/50 94 L 01/20/17 03:46 53 L 16 94 L 01/20/17 00:03 53 L 16 96 01/20/17 00:00 98.5 F 61 18 90/51 99 01/19/17 20:00 98.2 F 71 16 114/57 95 01/19/17 19:15 67 20 93 L 01/19/17 16:00 98.5 F 70 21 95/52 96 01/19/17 14:54 78 22 96 01/19/17 13:03 83 L 01/19/17 12:00 96.0 F 78 22 102/53 93 L Intake and Output: Intake & Output 01/17/17 01/18/17 01/19/17 01/20/17 11:59 11:59 11:59 11:59 Intake Total 360 Balance 360 Assessment/Plan (1) COPD with exacerbation Current Visit: Yes Status: Acute Assessment & Plan: continue steroids iv and ceftriaxone/azithromycin with the severity of exacerbation continue the nebs GI ppx with famotidine lovenox for ppx hold the lisinopril with the low bp this am wean O2 as tolerated Code(s): J44.1 - CHRONIC OBSTRUCTIVE PULMONARY DISEASE W (ACUTE) EXACERBATION (2) Diabetes Current Visit: Yes Status: Chronic Qualifiers: Code(s): E11.9 - TYPE 2 DIABETES MELLITUS WITHOUT COMPLICATIONS (3) Pulmonary nodule Current Visit: Yes Status: Acute Code(s): R91.1 - SOLITARY PULMONARY NODULE
[2017-01-20] MEDS: ECOTRIN 81 MG PO SCH (20:11)
[2017-01-20] MEDS: NEURONTIN 300 MG PO SCH (20:11)
[2017-01-20] MEDS: Ambien 5 MG Tablet PO SCH (20:12)
[2017-01-20] MEDS: ULTRAM 50 MG PO SCH (20:12)
[2017-01-20] MEDS: Lantus Insulin SQ SCH (21:19)
[2017-01-21] MEDS: DUONEB 0.5-3 MG/3 ml Neb IH SCH ×6 (03:18→22:45)
[2017-01-21] MEDS: solu-MEDROL 125 MG IV SCH (05:38)
--- NOTE | 2017-01-21 08:06 | PCM.NOTE ---
Date and Time: 01/21/17 0804 Subjective Assessment: she is feeling better walking more still cough with some clear mucous no swelling vomiting or edema no chest pain O2 was weaned down to 4L currently. Objective Exam General Appearance: no apparent distress, alert Neurologic Exam: alert, oriented x 3, cooperative, normal mood/affect, nml cerebellar function, sensation nml, No motor deficits Skin Exam: normal color, warm, dry Eye Exam: PERRL, EOMI, eyes nml inspection Ears, Nose, Throat Exam: normal ENT inspection, pharynx normal, moist mucous membranes Neck Exam: normal inspection, non-tender, supple, full range of motion Respiratory Exam: crackles/rales (diffuse bilateral rales and wheezing), wheezing Cardiovascular Exam: regular rate/rhythm, normal heart sounds Gastrointestinal/Abdomen Exam: soft, No tenderness, No mass Extremity Exam: normal inspection, normal range of motion Back Exam: normal inspection, normal range of motion, No CVA tenderness, No vertebral tenderness Pelvic Exam: deferred Rectal Exam: deferred OBJECTIVE DATA Vital Signs: Vital Signs - 24 hr Temp Pulse Resp BP Pulse Ox 01/21/17 07:44 20 01/21/17 07:22 98 F 68 20 143/61 94 L 01/21/17 06:20 70 16 99 01/21/17 04:00 97.9 F 53 L 18 117/57 96 01/21/17 03:19 53 L 18 96 01/20/17 23:52 97.6 F 52 L 19 118/65 98 01/20/17 23:27 51 L 19 98 01/20/17 20:00 97.7 F 60 20 150/65 94 L 01/20/17 19:07 65 20 94 L 01/20/17 16:08 98.6 F 60 20 111/53 97 01/20/17 14:37 67 20 92 L 01/20/17 11:30 97.8 F 57 L 18 140/68 95 01/20/17 10:37 59 L 16 93 L 01/20/17 08:52 64 16 98 Oxygen-Last 24 hours O2 Percentage 6 Liters = 44% O2 Percentage 6 Liters = 44% O2 Percentage 5 Liters = 40% O2 Percentage 6 Liters = 44% Pain Assessment - Last Documented Pain Intensity 0 Pain Scale Used 0-10 Pain Scale Intake and Output: Intake & Output 0501/19/17 01/20/17 01/21/17 11:59 11:59 11:59 11:59 Intake Total 360 1310 Output Total 600 Balance 360 710 Weight 74.298 kg Lab Results: Accuchecks Date 01/21/17 Time 07:30 Accucheck Value: 146 Accucheck Value: 323 Accucheck Value: 140 Accucheck Value: 276 Assessment/Plan (1) COPD with exacerbation Current Visit: Yes Status: Acute Assessment & Plan: will try to wean the steroids to po prednisone continue antibiotics continue pepcid and lovenox for ppx try to wean O2 as tolerated increase activity as tolerated stop smoking discussed Code(s): J44.1 - CHRONIC OBSTRUCTIVE PULMONARY DISEASE W (ACUTE) EXACERBATION (2) Diabetes Current Visit: Yes Status: Chronic Qualifiers: Code(s): E11.9 - TYPE 2 DIABETES MELLITUS WITHOUT COMPLICATIONS (3) Pulmonary nodule Current Visit: Yes Status: Acute Code(s): R91.1 - SOLITARY PULMONARY NODULE
[2017-01-21] MEDS: ceLEXa 20 MG PO SCH (09:12)
[2017-01-21] MEDS: Tessalon Perles 100 MG PO PRN ×2 (09:13→16:23)
[2017-01-21] MEDS: DELTASONE 20 MG PO SCH (09:13)
[2017-01-21] MEDS: COREG 12.5 MG PO SCH ×2 (09:14→21:30)
[2017-01-21] MEDS: Pepcid 20 MG PO SCH ×2 (09:14→21:29)
[2017-01-21] MEDS: ROCEPHIN 1 Gm-D5w 50 ml Bag** 50 ML IV SCH (09:15)
[2017-01-21] MEDS: ENOXAPARIN SODIUM SQ SCH (09:15)
[2017-01-21] MEDS: Zithromax 500 MG/ 250 ML NaCl Premix 250 ML IV SCH (09:15)
[2017-01-21] MEDS: NovoLOG Insulin SQ PRN ×3 (11:37→21:32)
[2017-01-21] MEDS: ULTRAM 50 MG PO PRN ×2 (16:22→21:40)
[2017-01-21] MEDS: ECOTRIN 81 MG PO SCH (21:29)
[2017-01-21] MEDS: NEURONTIN 300 MG PO SCH (21:29)
[2017-01-21] MEDS: Ambien 5 MG Tablet PO SCH (21:31)
[2017-01-21] MEDS: Lantus Insulin SQ SCH (21:32)
[2017-01-22] MEDS: DUONEB 0.5-3 MG/3 ml Neb IH SCH ×3 (02:47→10:42)
[2017-01-22 08:01] VITALS: BP 169/74
[2017-01-22] MEDS: ROCEPHIN 1 Gm-D5w 50 ml Bag** 50 ML IV SCH (09:41)
[2017-01-22] MEDS: DELTASONE 20 MG PO SCH (09:49)
[2017-01-22] MEDS: Pepcid 20 MG PO SCH (09:49)
[2017-01-22] MEDS: ceLEXa 20 MG PO SCH (09:49)
[2017-01-22] MEDS: ENOXAPARIN SODIUM SQ SCH (09:49)
[2017-01-22] MEDS: COREG 12.5 MG PO SCH (09:49)
[2017-01-22] MEDS: ULTRAM 50 MG PO PRN (09:52)
[2017-01-22 10:48] VITALS: O2SAT 94
[2017-01-22] MEDS: Zithromax 500 MG/ 250 ML NaCl Premix 250 ML IV SCH (10:52)
--- NOTE | 2017-01-22 11:10 | PCM.DS ---
Discharge Summary Date of Admission: 01/20/17 08:28 Admitting Physician: FRANCO JOHNSON Primary Care Provider: MATTEO ROSALES Allergies Allergies No Known Drug Allergies Allergy (Verified 01/18/17 15:19) Hospital Summary - Hospital Course Hospital Course: Pt admitted with COPD exacerbation, has been on O2 and improving steadily. Few days ago tried to walk in the [place] without her O2 and had desaturation down to 40s. She is doing well now, can take O2 off for short period of time comfortably but has definitely qualified for home O2. She is feeling much better and would like to go home. Still having productive cough. Out of bed without issues. - Vitals & Intake/Output Vital Signs: Vital Signs Temperature 98.1 F 01/22/17 08:00 Pulse Rate 86 01/22/17 10:45 Respiratory Rate 18 01/22/17 10:45 Blood Pressure 169/74 01/22/17 08:00 O2 Sat by Pulse Oximetry 94 L 01/22/17 10:45 Oxygen-Last Documented O2 Percentage 3 Liters = 32% Intake & Output: Intake & Output 01/19/17 01/20/17 01/21/17 01/22/17 11:59 11:59 11:59 11:59 Intake Total 360 1790 1660 Output Total 600 850 Balance 360 1190 810 Weight 74.298 kg 74.752 kg - Lab Result Diagrams: 01/18/17 15:40 01/18/17 15:40 Lab Results-Last 24 Hrs: Accuchecks Date 01/22/17 Date 01/21/17 Date 01/21/17 Time 07:30 Time 16:38 Accucheck Value: 68 Accucheck Value: 218 Accucheck Value: 212 Accucheck Value: 214 Micro Results-Entire Visit: Accuchecks Date 01/22/17 Date 01/21/17 Date 01/21/17 Time 07:30 Time 16:38 Accucheck Value: 68 Accucheck Value: 218 Accucheck Value: 212 Accucheck Value: 214 - Procedures and Test Procedures and Tests throughout Hospitalization: Therapy Orders & Screens 01/20/17 15:00 Flutter Therapy 1 HR POST TRANSFUS Comment: FLUTTER Q4 Diagnosis: Acute exacerbation COPD/pneumonia Discharge Exam General Appearance: no apparent distress Neurologic Exam: alert, oriented x 3, cooperative Skin Exam: normal color, warm, dry Eye Exam: eyes nml inspection Respiratory Exam: diminished breath sounds (fair to good air exchange.), wheezing (mild scattered), No crackles/rales, No rhonchi Cardiovascular Exam: regular rate/rhythm, normal heart sounds, No murmur Gastrointestinal/Abdomen Exam: soft, No tenderness, No mass Extremity Exam: No pedal edema, No swelling Back Exam: normal inspection Final Diagnosis/Problem List - Final Discharge Diagnosis/Problem (1) COPD with exacerbation Current Visit: Yes Status: Acute Assessment & Plan: Home on po augmentin. F/u with Dr. Sevilla in 1 week. 3L NC with [employer]. po prednisone. albuterol nebs q4-6h prn,but at least QID for the next 4d. (2) Diabetes Current Visit: Yes Status: Chronic Assessment & Plan: some BS elevation in the 200s, expected while on steroids. f/u outpatient. watch for lows (had one BS of 68 while here). (3) Hypoxia Current Visit: No Status: Acute Assessment & Plan: home on O2. I discussed with pt at length she is not worsening her condition by using the oxygen, she needs to use it consistently at home. (4) Tobacco abuse Current Visit: No Status: Chronic Assessment & Plan: needs to quit smoking. - Discharge Disposition: Home, Self-Care Condition: Stable Prescriptions: New Amoxicillin/Potassium Clav [Augmentin 875-125 Tablet] 875 mg PO BID #20 tablet Albuterol/Ipratropium 3ml Neb* [DUONEB 0.5-3 MG/3 ml Neb] 3 ml IH QID #30 ampul.neb Prednisone 20 mg [Deltasone 20 mg] 20 mg PO DAILY #17 tablet Continue Lisinopril 10 mg [Zestril 10 MG] 10 mg PO HS Albuterol Sulfate [Proair Hfa] 8.5 gm IH Q4H Tramadol HCl 50 mg [Ultram 50 mg] 50 mg PO BID Carvedilol 25 mg PO BID Aspirin 81 mg PO HS Insulin Glargine,Hum.rec.anlog [Lantus] 20 unit SQ HS Diclofenac Sodium 50 mg [Voltaren 50 mg] 50 mg PO BID Gabapentin 300 mg PO HS Citalopram Hydrobromide 20 mg* [ceLEXa 20 MG] 20 mg PO DAILY Discontinued Prednisone 10 mg [Deltasone 10 mg] 10 mg PO DAILY #17 tablet Follow up with: MATTEO ROSALES [Primary Care Provider] - Forms: Patient Portal Information
[2017-01-22 12:57] VITALS: PULSE 80
== END 2017-01-22 13:20 | disposition home or self-care (01) | DRG 192 ==
LOC: ED 14:54 → MED SURG 19:24 → OBSVTOIN 01-20 08:28
PROVIDERS: ADMIT Family Medicine; ATTEND Family Medicine
DX: J44.1 Chronic obstructive pulmonary disease with (acute) exacerbation (principal); E11.9 Type 2 diabetes mellitus without complications; R09.02 Hypoxemia; Z72.0 Tobacco use; Z79.4 Long term (current) use of insulin; Z79.899 Other long term (current) drug therapy; I10 Essential (primary) hypertension; G62.9 Polyneuropathy, unspecified; M81.0 Age-related osteoporosis without current pathological fracture; F41.9 Anxiety disorder, unspecified; R91.1 Solitary pulmonary nodule
CPT/HCPCS: 36000; 36415; 36600; 71010; 71260; 80053; 81000; 82375; 82803; 82962; 83605; 83735; 83880; 84484; 85025; 85379; 85610; 87040; 87631; 93005; 93041; 93268; 94640; 94667; 94668; 94760; 94761; 94770; 96360; 96361; 96365; 96367; 96374; 99285; G0378; J0456; J0696; J1650; J2930; A9270-GY; J7506